=== PATIENT | male | born 1980 | race Caucasian/White ===

== ENCOUNTER 2017-03-22 14:30 | Emergency (ER) | payer BC ==
--- NOTE | 2017-03-22 14:34 | PDOC ---
Rapid Medical Evaluation Time Seen by Provider: 03/22/17 14:33 Medical Evaluation: Allergies Allergy/AdvReac Type Severity Reaction Status Date / Time No Known Allergies Allergy Verified 03/22/17 14:31 03/22/17 14:33 I have performed a brief in-person evaluation of this patient. The patient presents with a chief complaint of: rectal bleeding Pertinent physical exam findings: RECTAL: external hemorrhoid present I have ordered the following: n/a The patient will proceed to the ED for further evaluation. Discharge Disposition - Diagnosis Rectal bleeding - Referrals - Patient Instructions - Post Discharge Activity
[2017-03-22 14:38] VITALS: BMI 41.0
[2017-03-22 17:05] LABS: BASO # 0.1 # (0.1-1); BASO % 0.6 % (0-2.0); EOS # 0.1 # (0-4.5); EOS % 0.5 % (0-4.5); LYMPH # 1.9 (8-40); MCH 27.9 pg (25.7-33.7); MCHC 33.9 g/dl (32.0-35.9); MEAN CELL VOLUME 82.2 fl (80-96); MEAN PLT VOLUME 8.5 fl (7.5-11.1); MONO # 0.6 # (3.8-10.2); NEUT # 7.9 # (42.8-82.8); NEUT % 75.6 % (42.8-82.8); PLATELET COUNT 279 K/MM3 (134-434); RDW 13.7 % (11.9-15.9); WHITE BLOOD COUNT 10.5 K/mm3 (4.0-10.0)
--- NOTE | 2017-03-22 17:20 | PDOC ---
History of Present Illness - General Chief Complaint: Rectal Bleed Stated Complaint: RECTAL BLEED Time Seen by Provider: 03/22/17 14:33 - History of Present Illness Initial Comments: 03/22/17 17:20 Chief complaint: Rectal bleed History of present illness: 36 years old past medical history significant for gastric sleeve, depression, presents to the ED with 1 month history of small amount of bright red blood after firm bowel movements while wiping. Today patient expelled gas had a slightly larger amount of blood wiped for times slow blood on the toilet paper and came to the emergency department. The dizziness no lightheadedness no nausea no vomiting no diarrhea no abdominal pain. States he has a slight stomachache is drinking Gatorade states symptoms are improving. Past History - Past Medical History Allergies/Adverse Reactions: Allergies Allergy/AdvReac Type Severity Reaction Status Date / Time No Known Allergies Allergy Verified 03/22/17 14:31 Home Medications: Ambulatory Orders Azithromycin [Zithromax -] 250 mg PO UTDICT #6 tab 01/12/16 Guaifenesin AC [Robitussin AC] 10 ml PO TID #100 liquid MDD 40ml 01/12/16 Ibuprofen 800 mg PO TID #30 tablet 01/12/16 Anemia: No Asthma: No Cancer: No Cardiac Disorders: No CVA: No COPD: No CHF: No Dementia: No Diabetes: No GI Disorders: Yes (REFLUX) Disorders: No HTN: No Hypercholesterolemia: No Liver Disease: No Psychiatric Problems: Yes (ANXIETY.) Seizures: No Thyroid Disease: No - Surgical History Abdominal Surgery: Yes (OPEN APPENDECTOMY) Appendectomy: Yes (AT AGE 13) Cardiac Surgery: No Cholecystectomy: No Lung Surgery: No Neurologic Surgery: No Orthopedic Surgery: No - Immunization History Td Vaccination: Yes TDAP Vaccination: Yes Immunization Up to Date: Yes - Suicide/Smoking/Psychosocial Hx Smoking Status: No Smoking History: Never smoked Have you smoked in the past 12 months: No Number of Cigarettes Smoked Daily: 0 Information on smoking cessation initiated: No Hx Alcohol Use: No Drug/Substance Use Hx: No Substance Use Type: None Hx Substance Use Treatment: No Review of Systems - Review of Systems Comments:: 03/22/17 17:21 ROS: A complete review of 10 out of 10 review of systems is taken and is negative apart from what is previously mentioned below and in the HPI. *Physical Exam - Vital Signs Last Vital Signs Temp Pulse Resp BP Pulse Ox 97.9 F 79 16 150/100 100 03/22/17 14:32 03/22/17 14:32 03/22/17 14:32 03/22/17 14:32 03/22/17 14:32 - Physical Exam Comments: 03/22/17 17:24 Vitals: Triage Vital signs reviewed General Appearance: no acute distress, well nourished well developed, Head: Atraumatic, Neck: Supple;No Nucal rigidity Chest Wall: Nontender Cardiac: Regular rate and rhythym, no murmurs, no rubs, no gallops, Lungs: Clear to auscultation bilateral, good air movement bilaterally, Abdomen: Soft, non distended, normal bowel sounds, non tender to palpation Rectal: Brown stool mixed with streaks of red blood no obvious hemorrhoid identified Extremities: Full range of motion to all extremities, no cyanosis, clubbing, or edema Skin: Warm and dry, no rashes or lesions, no rash, no petechiae Neuro: AOX3; Cranial Nerves 2-12 grossly intact, Strength intact to all extremities, Sensation intact to all extremities,gait normal Psych: normal mood, normal affect ED Treatment Course - LABORATORY CBC & Chemistry Diagram: 03/22/17 16:57 03/22/17 16:57 - ADDITIONAL ORDERS Additional order review: 03/22/17 16:57 RBC 4.98 MCV 82.2 MCHC 33.9 RDW 13.7 MPV 8.5 Neutrophils % 75.6 D Lymphocytes % 18.0 D Monocytes % 5.3 Eosinophils % 0.5 Basophils % 0.6 Medical Decision Making - Medical Decision Making 03/22/17 17:27 Well appearing no apparent distress presents to the emergency department with 1 month history of intermittent bright red blood per rectum today had a larger amount. Hemodynamically stable H&H stable. Mild GI discomfort which has resolved with time here in the emergency department. Patient has a benign abdominal examination. Most likely diagnosis is either internal or external hemorrhoid. I provided the patient with gastroenterology follow-up and advised patient to call GI for follow-up in 2 days. He was instructed to return to the emergency department for any abdominal pain that is worsening any worsening blood per rectum any dizziness lightheadedness or for any concerns. He was instructed of the importance of close follow-up. Discussed with patient's primary care provider. He will see the patient on Saturday for follow-up. Findings, the need for follow-up and strict discharge instructions discussed with patient. 03/23/17 01:35 03/23/17 01:35 *DC/Admit/Observation/Transfer Diagnosis at time of Disposition: Rectal bleeding - Referrals Referrals: Moris Ledesma MD [Primary Care Provider] - Thong Nation MD [Staff Physician] - - Patient Instructions Printed Discharge Instructions: DI for Rectal Bleeding Additional Instructions: Tomorrow called office for appointment, will see her next Saturday. Follow-up with Dr. Nation gastroenterology next week. Take an [id number] stool softener such as Colace as directed on packaging. Return to the emergency department immediately for any worsening bleeding any abdominal pain lightheadedness dizziness or for any concerns. Also follow-up with your primary care provider next week as well. - Post Discharge Activity
[2017-03-22 17:49] LABS: ANION GAP 5 (8-16); CALCIUM 8.4 mg/dL (8.5-10.1); CO2 30 mmol/L (21-32); CREATININE 0.8 mg/dL (0.7-1.3); GLUCOSE,RANDOM 106 mg/dL (74-106)
[2017-03-22 18:10] VITALS: BP 142/86; PULSE 75; TEMP 98.1
== END 2017-03-22 18:00 | disposition home or self-care (01) ==
LOC: JER 14:30
DX: K62.5 Hemorrhage of anus and rectum (principal); F32.9 Major depressive disorder, single episode, unspecified; Z98.84 Bariatric surgery status
CPT/HCPCS: 36415; 80048; 85025; 99282-25

== ENCOUNTER 2017-12-12 13:31 | Emergency (ER) | payer SELFPAY ==
[2017-12-12 13:42] VITALS: BP 132/75; PULSE 83; TEMP 98.2; BMI 30.5
--- NOTE | 2017-12-12 14:18 | PDOC ---
History of Present Illness - General Chief Complaint: Injury Stated Complaint: RT ARM PAIN Time Seen by Provider: 12/12/17 13:56 History Source: Patient Exam Limitations: No Limitations - History of Present Illness Initial Comments: 12/12/17 14:13 37-year-old male presented to ED with complaints of pain to his right arm for the past 2 weeks. Patient states was carrying a 70 inch TV when it slipped walking down steps causing him to strain his right arm. Patient states discomfort continues from his mid bicep to his wrist. Patient states works for [employer] is frequently lifting items. Patient states pain worsened yesterday when he was carrying groceries for his . Patient denies melena range of motion, sensory changes, swelling, redness of the area Timing/Duration: intermittent, other Severity: mild, moderate Associated Symptoms: reports: denies symptoms Past History - Past Medical History Allergies/Adverse Reactions: Allergies Allergy/AdvReac Type Severity Reaction Status Date / Time No Known Allergies Allergy Verified 12/12/17 13:39 Home Medications: Ambulatory Orders NK [No Known Home Medication] 12/12/17 Anemia: No Asthma: No Cancer: No Cardiac Disorders: No CVA: No COPD: No CHF: No Dementia: No Diabetes: No GI Disorders: Yes (REFLUX) Disorders: No HTN: No Hypercholesterolemia: No Liver Disease: No Psychiatric Problems: Yes (ANXIETY.) Seizures: No Thyroid Disease: No Other medical history: sleep apnea - Surgical History Abdominal Surgery: Yes (OPEN APPENDECTOMY) Appendectomy: Yes (AT AGE 13) Cardiac Surgery: No Cholecystectomy: No Lung Surgery: No Neurologic Surgery: No Orthopedic Surgery: No - Immunization History Td Vaccination: Yes TDAP Vaccination: Yes Immunization Up to Date: Yes - Suicide/Smoking/Psychosocial Hx Smoking Status: No Smoking History: Never smoked Have you smoked in the past 12 months: No Number of Cigarettes Smoked Daily: 0 Hx Alcohol Use: No Drug/Substance Use Hx: No Substance Use Type: None Hx Substance Use Treatment: No Patient Lives Alone: No Lives with/in: spouse/SO Review of Systems - Review of Systems Able to Perform ROS?: No Constitutional: No: Symptoms Reported Respiratory: No: Symptoms reported Cardiac (ROS): No: Symptoms Reported Musculoskeletal: Yes: Muscle Pain. No: Joint Pain, Muscle Weakness Integumentary: No: Symptoms Reported Neurological: No: Symptoms reported, Numbness, Tingling, Weakness *Physical Exam - Vital Signs Last Vital Signs Temp Pulse Resp BP Pulse Ox 98.2 F 83 18 132/75 98 12/12/17 13:39 12/12/17 13:39 12/12/17 13:39 12/12/17 13:39 12/12/17 13:39 - Physical Exam General Appearance: Yes: Nourished, Appropriately Dressed. No: Apparent Distress Neck: positive: Supple. negative: Decreased range of motion Musculoskeletal: negative: Vertebral Tenderness Extremity: positive: Normal Capillary Refill, Normal Inspection, Normal Range of Motion, Tender (rt brachioradialis ) Integumentary: positive: Normal Color, Warm, Moist Neurologic: positive: Motor Strength 5/5 (5+ rt hand grasp but with noted discomfort) Medical Decision Making - Medical Decision Making 12/12/17 14:16 Patient with right forearm pain for the past 2 weeks worsened with movement. Patient works with [employer] frequently lifting items. Patient states is able to work is given a sling which are promote healing and provide patient reminder that he needs to rest area. *DC/Admit/Observation/Transfer Diagnosis at time of Disposition: Muscle strain of forearm - Discharge Dispostion Disposition: HOME Condition at time of disposition: Good - Referrals - Patient Instructions Printed Discharge Instructions: DI for Forearm Muscle Strain Additional Instructions: Please use sling during the day and remove at night. Take Advil 600 mg every 8 hours. If symptoms continue greater than 2 weeks please consider 5 with your doctor to have an MRI performed - Post Discharge Activity
== END 2017-12-12 14:32 | disposition home or self-care (01) ==
LOC: JERFT 13:31
DX: S56.811A Strain of other muscles, fascia and tendons at forearm level, right arm, initial encounter (principal); X50.0XXA Overexertion from strenuous movement or load, initial encounter; Y93.89 Activity, other specified; Y92.89 Other specified places as the place of occurrence of the external cause; Y99.8 Other external cause status
CPT/HCPCS: 99281-25

== ENCOUNTER 2017-12-17 23:56 | Emergency (ER) | payer SELFPAY ==
[2017-12-18 00:44] VITALS: BMI 41.1
--- NOTE | 2017-12-18 01:22 | PDOC ---
History of Present Illness <Albert Ruby - Last Filed: 12/18/17 06:14> - General History Source: Patient Exam Limitations: No Limitations - History of Present Illness Initial Comments: 12/18/17 03:56 Patient is a 37-year-old male with no past medical history, who presents to the emergency department today for gross hematuria. Patient states symptoms started this morning. He states that over the day the amount of blood in his urine progressively got worse. He also admits to pain with urination and a burning sensation. Patient is monogamous with 1 partner. He also admits to lower abdominal pain. Denies fevers, chills, nausea, vomiting, diarrhea, constipation , testicular pain, weakness. <Jazmin Babcock - Last Filed: 12/18/17 07:11> - General Chief Complaint: Hematuria Stated Complaint: BLOOD IN Urinary Time Seen by Provider: 12/18/17 00:57 Past History <Albert Ruby - Last Filed: 12/18/17 06:14> - Travel Traveled outside of the country in the last 30 days: No Close contact w/someone who was outside of country & ill: No - Past Medical History Anemia: No Asthma: No Cancer: No Cardiac Disorders: No CVA: No COPD: No CHF: No Dementia: No Diabetes: No GI Disorders: Yes (REFLUX) Disorders: No HTN: No Hypercholesterolemia: No Liver Disease: No Psychiatric Problems: Yes (ANXIETY.) Seizures: No Thyroid Disease: No - Surgical History Abdominal Surgery: Yes (OPEN APPENDECTOMY) Appendectomy: Yes (AT AGE 13) Cardiac Surgery: No Cholecystectomy: No Lung Surgery: No Neurologic Surgery: No Orthopedic Surgery: No - Immunization History Td Vaccination: Yes TDAP Vaccination: Yes Immunization Up to Date: Yes - Suicide/Smoking/Psychosocial Hx Smoking Status: No Smoking History: Never smoked Have you smoked in the past 12 months: No Number of Cigarettes Smoked Daily: 0 Information on smoking cessation initiated: No Hx Alcohol Use: No Drug/Substance Use Hx: No Substance Use Type: None Hx Substance Use Treatment: No <Jazmin Babcock - Last Filed: 12/18/17 07:11> - Past Medical History Allergies/Adverse Reactions: Allergies Allergy/AdvReac Type Severity Reaction Status Date / Time No Known Allergies Allergy Verified 12/12/17 13:39 Home Medications: Ambulatory Orders Phenazopyridine HCl [Pyridium -] 100 mg PO TID #21 tablet 12/18/17 Review of Systems - Review of Systems Able to Perform ROS?: Yes Comments:: 12/18/17 01:21 CONSTITUTIONAL: Absent: fever, chills, diaphoresis, generalized weakness, malaise, loss of appetite HEENT: Absent: rhinorrhea, nasal congestion, throat pain, throat swelling, difficulty swallowing, mouth swelling, ear pain, eye pain, visual Changes CARDIOVASCULAR: Absent: chest pain, loss of consciousness, palpitations, irregular heart rate, peripheral edema RESPIRATORY: Absent: cough, shortness of breath, dyspnea with exertion, orthopnea, wheezing, stridor, hemoptysis GASTROINTESTINAL: Absent: abdominal pain, abdominal distension, nausea, vomiting, diarrhea, constipation, melena, hematochezia GENITOURINARY: Present: hematuria, dysuria Absent: frequency, urgency, hesitancy, flank pain, genital pain MUSCULOSKELETAL: Absent: myalgia, arthralgia, joint swelling SKIN: Absent: rash, itching, pallor HEMATOLOGIC/IMMUNOLOGIC: Absent: easy bleeding, easy bruising, lymphadenopathy, frequent infections ENDOCRINE: Absent: unexplained weight gain, unexplained weight loss, heat intolerance, cold intolerance NEUROLOGIC: Absent: headache, focal weakness or paresthesias, dizziness, unsteady gait, seizure, mental status changes, bladder or bowel incontinence Is the patient limited Uzbek proficient: No <Jazmin Babcock - Last Filed: 12/18/17 07:11> *Physical Exam - Vital Signs Last Vital Signs Temp Pulse Resp BP Pulse Ox 98.6 F 82 20 138/88 98 12/17/17 23:58 12/17/17 23:58 12/17/17 23:58 12/17/17 23:58 12/17/17 23:58 <Albert Ruby - Last Filed: 12/18/17 06:14> - Vital Signs Last Vital Signs Temp Pulse Resp BP Pulse Ox 98.6 F 82 20 138/88 98 12/17/17 23:58 12/17/17 23:58 12/17/17 23:58 12/17/17 23:58 12/17/17 23:58 - Physical Exam Comments: 12/18/17 01:22 GENERAL: Well developed, well nourished. Awake and alert. No acute distress. HEENT: Normocephalic, atraumatic. PERRLA, EOMI. No conjunctival pallor. Sclera are non- icteric. Moist mucous membranes. Oropharynx is clear. NECK: Supple. Full ROM. No JVD. Carotid pulses 2+ and symmetric, without bruits. No thyromegaly. No lymphadenopathy. CARDIOVASCULAR: Regular rate and rhythm. No murmurs, rubs, or gallops. Distal pulses are 2+ and symmetric. PULMONARY: No evidence of respiratory distress. Lungs clear to auscultation bilaterally. No wheezing, rales or rhonchi. ABDOMINAL: TTP of the suprapubic region. Soft. Non-distended. No rebound or guarding. No organomegaly. Normoactive bowel sounds. : No lesions or ulcers noted to the external genitalia. On retraction of foreskin , gross hematuria noted. Testicles are descended b/l and freely mobile without pain. MUSCULOSKELETAL Normal range of motion at all joints. No bony deformities or tenderness. No CVA tenderness. EXTREMITIES: No cyanosis. No clubbing. No edema. No calf tenderness. SKIN: Warm and dry. Normal capillary refill. No rashes. No jaundice. NEUROLOGICAL: Alert, awake, appropriate. Cranial nerves 2-12 intact. No deficits to light touch and temperature in face, upper extremities and lower extremities. No motor deficits in the in face, upper extremities and lower extremities. Normoreflexic in the upper and lower extremities. Normal speech. Toes are down- going bilaterally. Gait is normal without ataxia. PSYCHIATRIC: Cooperative. Good eye contact. Appropriate mood and affect. 12/18/17 06:57 <Jazmin Babcock - Last Filed: 12/18/17 07:11> ED Treatment Course - LABORATORY CBC & Chemistry Diagram: 12/18/17 02:22 12/18/17 02:22 - ADDITIONAL ORDERS Additional order review: Laboratory Results 12/18/17 12/18/17 03:50 02:22 Sodium 140 Potassium 4.2 Chloride 103 Carbon Dioxide 32 Anion Gap 5 L BUN 16 Creatinine 0.9 Creat Clearance w eGFR > 60 Random Glucose 95 Calcium 8.7 Total Bilirubin 0.5 AST 19 ALT 29 Alkaline Phosphatase 106 Total Protein 7.4 Albumin 3.9 Urine Color Ltyellow Urine Appearance Clear Urine pH 6.0 Ur Specific [employer] 1.018 Urine Protein Negative Urine Glucose (UA) Negative Urine Ketones Negative Urine Blood 3+ H Urine Nitrite Negative Urine Bilirubin Negative Urine Urobilinogen Negative Ur Leukocyte Esterase Negative Urine WBC (Auto) 4 Urine RBC (Auto) 219 Ur Epithelial Cells Rare Urine Bacteria Few Hyaline Casts 3 Urine Mucus Rare 12/18/17 02:22 RBC 4.93 MCV 80.9 MCHC 33.7 RDW 13.4 MPV 8.3 Neutrophils % 72.8 Lymphocytes % 20.6 Monocytes % 4.8 Eosinophils % 1.1 D Basophils % 0.7 <Albert Ruby - Last Filed: 12/18/17 06:14> - LABORATORY CBC & Chemistry Diagram: 12/18/17 02:22 12/18/17 02:22 <Jazmin Babcock - Last Filed: 12/18/17 07:11> Medical Decision Making - Medical Decision Making 12/18/17 06:[address] Tobar, urologist precision farming coordinator's answering service, awaiting call back from Dr. English precision farming coordinator for Dr. Tobar. <Albert Ruby - Last Filed: 12/18/17 06:14> - Medical Decision Making 12/18/17 06:49 Patient is a 37-year-old male with no past medical history, who presents to the emergency department today for gross hematuria. -Pt with one day of gross hematuria and dysuria -PE notable for bloody discharge at the head of the penis -No GC/Chlamidia amplifications left in the lab -Lab work notable for gross hematuria on UA. Over 300+ RBC's. No WBCS/LE and nitrite (-) -H&H stable, BUN/Cr WNL -DDX includes: cystitis, UTI, STD, polyps, Ca -Spoke with Dr. Pitts, recommends CT scan at this time. If negative can dc home with Urology follow up to see him in the office for cystoscopy. -Will have pt hold ibuprofen use -Sign out to day shift. Pending CT <Jazmin Babcock - Last Filed: 12/18/17 07:11> *DC/Admit/Observation/Transfer - Attestations Scribe Attestion: 12/18/17 06:15 Documentation prepared by Albert Ruby, acting as medical record administrator for Michael Bender MD. <Albert Ruby - Last Filed: 12/18/17 06:14> - Discharge Dispostion Decision to Admit order: No <Jazmin Babcock - Last Filed: 12/18/17 07:11> Diagnosis at time of Disposition: Hematuria Qualifiers: Hematuria type: gross Qualified Code(s): R31.0 - Gross hematuria - Discharge Dispostion Condition at time of disposition: Stable - Referrals Referrals: Moris Ledesma MD [Primary Care Provider] - Gentry English MD., MD [Staff Physician] - - Patient Instructions Printed Discharge Instructions: DI for Hematuria Additional Instructions: You have hematuria or blood in the urine Please follow up with Dr. English, urology for further work up Do not take the ibuprofen until your bleeding has stopped Please follow [facility] with [facility] for [facility]D testing Drink plenty of fluids You may take pyridium 3 times a day with food to help with your symptoms Return to the ED for any new or worsening symptoms - Post Discharge Activity
[2017-12-18 02:30] LABS: BASO % 0.7 % (0-2.0); EOS % 1.1 % (0-4.5); HEMATOCRIT 39.8 % (35.4-49); HEMOGLOBIN 13.4 GM/dL (11.7-16.9); LYMPH % 20.6 % (8-40); MCH 27.3 pg (25.7-33.7); MCHC 33.7 g/dl (32.0-35.9); MEAN CELL VOLUME 80.9 fl (80-96); MEAN PLT VOLUME 8.3 fl (7.5-11.1); MONO % 4.8 % (3.8-10.2); NEUT % 72.8 % (42.8-82.8); PLATELET COUNT 265 K/MM3 (134-434); RBC 4.93 M/mm3 (4.00-5.60); RDW 13.4 % (11.9-15.9); WHITE BLOOD COUNT 8.9 K/mm3 (4.0-10.0)
[2017-12-18 02:54] LABS: ALBUMIN 3.9 g/dl (3.4-5.0); ANION GAP 5 MMOL/L (8-16); BILIRUBIN,TOTAL 0.5 mg/dL (0.2-1); BLOOD UREA NITROGEN 16 mg/dL (7-18); CALCIUM 8.7 mg/dL (8.5-10.1); CHLORIDE 103 mmol/L (98-107); CO2 32 mmol/L (21-32); CREATININE 0.9 mg/dL (0.55-1.3); GLUCOSE,RANDOM 95 mg/dL (74-106); POTASSIUM 4.2 mmol/L (3.5-5.1); SGOT/AST 19 U/L (15-37); SGPT/ALT 29 U/L (13-61); SODIUM 140 mmol/L (136-145); TOT PROT 7.4 g/dl (6.4-8.2)
[2017-12-18 02:55] LABS: ALK PHOS 106 U/L (45-117)
[2017-12-18 04:18] LABS: URINE APPEARANCE CLEAR; URINE BILIRUBIN NEGATIVE (<2.0 mg/dL); URINE COLOR LTYELLOW; URINE GLUCOSE (UA) NEGATIVE (NEGATIVE); URINE KETONE NEGATIVE (NEGATIVE); URINE LEUK ESTERASE NEGATIVE (NEGATIVE); URINE NITRITE NEGATIVE (NEGATIVE); URINE PROTEIN NEGATIVE (NEGATIVE); URINE UROBILINOGEN NEGATIVE mg/dL (0.2-1.0)
[2017-12-18 05:30] LABS: EPI CELLS RARE /HPF (FEW); URINE BACTERIA FEW /hpf (NONE SEEN); URINE HYALINE CAST 3 /lpf; URINE MUCUS RARE
[2017-12-18] MEDS ORDERED: PHENAZOPYRIDINE HCL 100 MG TABLET (FP) PO ONE (07:11)
--- NOTE | 2017-12-18 08:01 | PDOC ---
*Physical Exam - Vital Signs Last Vital Signs Temp Pulse Resp BP Pulse Ox 98.5 F 88 18 136/78 99 12/18/17 06:39 12/18/17 06:39 12/18/17 06:39 12/18/17 06:39 12/18/17 06:39 - Physical Exam Comments: 12/18/17 07:59 Eyes in the care of this 37-year-old male with no sig Past medical history presented with gross hematuria. Urinalysis and all labs done with no significant findings except gross hematuria. abdominal pelvis CT ordered to rule out any mass. Urology aware of the patient and will do so for urology follow-up based on CT results General Appearance: Yes: Nourished, Appropriately Dressed. No: Apparent Distress HEENT: positive: Normal ENT Inspection Neck: positive: Supple Respiratory/Chest: positive: Lungs Clear, Normal Breath Sounds. negative: Chest Tender, Respiratory Distress, Accessory Muscle Use Cardiovascular: positive: Regular Rhythm, Regular Rate Gastrointestinal/Abdominal: positive: Normal Bowel Sounds, Flat, Soft. negative : Tender Musculoskeletal: positive: Normal Inspection. negative: CVA Tenderness ED Treatment Course - LABORATORY CBC & Chemistry Diagram: 12/18/17 02:22 12/18/17 02:22 - ADDITIONAL ORDERS Additional order review: Laboratory Results 12/18/17 12/18/17 03:50 02:22 Sodium 140 Potassium 4.2 Chloride 103 Carbon Dioxide 32 Anion Gap 5 L BUN 16 Creatinine 0.9 Creat Clearance w eGFR > 60 Random Glucose 95 Calcium 8.7 Total Bilirubin 0.5 AST 19 ALT 29 Alkaline Phosphatase 106 Total Protein 7.4 Albumin 3.9 Urine Color Ltyellow Urine Appearance Clear Urine pH 6.0 Ur Specific [employer] 1.018 Urine Protein Negative Urine Glucose (UA) Negative Urine Ketones Negative Urine Blood 3+ H Urine Nitrite Negative Urine Bilirubin Negative Urine Urobilinogen Negative Ur Leukocyte Esterase Negative Urine WBC (Auto) 4 Urine RBC (Auto) 219 Ur Epithelial Cells Rare Urine Bacteria Few Hyaline Casts 3 Urine Mucus Rare 12/18/17 02:22 RBC 4.93 MCV 80.9 MCHC 33.7 RDW 13.4 MPV 8.3 Neutrophils % 72.8 Lymphocytes % 20.6 Monocytes % 4.8 Eosinophils % 1.1 D Basophils % 0.7 Medical Decision Making - Medical Decision Making 12/18/17 09:07 Patient with no sig Past medical history presenting with complain of gross hematuria since overnight with urinary frequency and dysuria. Labs done unremarkable except gross hematuria. Patient give another urine sample which has been clearing up from hematuria from previous sample. Patient reported no pain now. Abdomen/pelvis CT done and discharged being on CT results which urology follow-up 12/18/17 09:37 CAT scan of abdomen or pelvis with no acute findings. Patient stable for home discharge on Cipro antibiotics and Pyridium with urology follow-up. *DC/Admit/Observation/Transfer Diagnosis at time of Disposition: Hematuria Qualifiers: Hematuria type: gross Qualified Code(s): R31.0 - Gross hematuria - Discharge Dispostion Disposition: HOME Condition at time of disposition: Stable - Prescriptions Prescriptions: Ciprofloxacin HCl [Cipro] 500 mg PO BID 5 Days #10 tablet Phenazopyridine HCl [Pyridium -] 100 mg PO TID #21 tablet - Referrals Referrals: Gentry English MD., MD [Staff Physician] - Moris Ledesma MD [Primary Care Provider] - - Patient Instructions Printed Discharge Instructions: DI for Hematuria Additional Instructions: You have hematuria or blood in the urine Please follow up with Dr. English, urology for further work up Do not take the ibuprofen until your bleeding has stopped Please follow [facility] with [facility] for [facility]D testing Drink plenty of fluids You may take pyridium 3 times a day with food to help with your symptoms Return to the ED for any new or worsening symptoms - Post Discharge Activity
[2017-12-18] MEDS ORDERED: PHENAZOPYRIDINE HCL 100 MG TABLET (FP) ONE (08:40)
[2017-12-18 09:52] VITALS: BP 124/88; PULSE 63; TEMP 98.6
== END 2017-12-18 09:51 | disposition home or self-care (01) ==
LOC: JER 23:56
DX: R31.0 Gross hematuria (principal)
CPT/HCPCS: 36415; 74178-TC; 80053; 81003; 81015; 85025; 87070; 87086; 87186; 87205; 99282-25

== ENCOUNTER 2018-03-11 22:57 | Emergency (ER) | payer SELFPAY ==
[2018-03-11 23:08] VITALS: BP 141/77; PULSE 74; TEMP 98.9; BMI 41.5
--- NOTE | 2018-03-12 00:05 | PDOC ---
History of Present Illness - General Chief Complaint: Shortness of Breath Stated Complaint: DIFFICULTY BREATHING,COLD SYMPTOMS Time Seen by Provider: 03/11/18 23:41 History Source: Patient Exam Limitations: No Limitations - History of Present Illness Initial Comments: 03/12/18 01:22 Patient is a 37 year old male with no significant past medical history who presents to the ED with complaints of persistent cough that began x1 month ago. Patient reports initially experiencing cough with associated fever and chills. He reports over time his symptoms have subsided aside from his cough which has remained constant since the beginning in January 2018. Patient reports experiencing nausea, post tussive emesis, headache, dizziness, chest pain secondary to chronic coughing. He reports being unable to speak due to cough stating, any talking starts a coughing fit. As per patient's , patient has tried OTC cough drops, nyquil and home remedies for cough with no relief, prompting him to come into the ED for further evaluation. Denies nausea. Denies fevers, chills. Denies contact with sick individuals, out of state travelling. Denies dysuria, hematuria. Denies diarrhea, constipation. Denies any other symptoms Allergies: None Social history: Lives with . No smoking, No alcohol. No illicit drugs . Surgical history: Appendectomy PMD: None Past History - Past Medical History Allergies/Adverse Reactions: Allergies Allergy/AdvReac Type Severity Reaction Status Date / Time No Known Allergies Allergy Verified 03/11/18 23:07 Home Medications: Ambulatory Orders Phenazopyridine HCl [Pyridium] 100 mg PO TID 2 Days #6 tablet 12/18/17 Levofloxacin [Levaquin] 500 mg PO DAILY #7 tablet 12/21/17 Albuterol Sulfate Inhaler - [Ventolin HFA Inhaler -] 1 - 2 inh PO QID PRN #1 inhaler 03/12/18 Albuterol Sulfate Inhaler - [Ventolin HFA Inhaler -] 1 - 2 inh PO QID PRN #1 inhaler 03/12/18 Benzonatate [Tessalon Pearls -] 100 mg PO TID PRN #21 capsule 03/12/18 Benzonatate [Tessalon Pearls -] 100 mg PO TID PRN #21 capsule 03/12/18 Anemia: No Asthma: No Cancer: No Cardiac Disorders: No CVA: No COPD: No CHF: No Dementia: No Diabetes: No GI Disorders: Yes (REFLUX) Disorders: No HTN: No Hypercholesterolemia: No Liver Disease: No Psychiatric Problems: Yes (ANXIETY.) Seizures: No Thyroid Disease: No - Surgical History Abdominal Surgery: Yes (OPEN APPENDECTOMY) Appendectomy: Yes (AT AGE 13) Cardiac Surgery: No Cholecystectomy: No Lung Surgery: No Neurologic Surgery: No Orthopedic Surgery: No - Immunization History Td Vaccination: Yes TDAP Vaccination: Yes Immunization Up to Date: Yes - Suicide/Smoking/Psychosocial Hx Smoking Status: No Smoking History: Never smoked Have you smoked in the past 12 months: No Number of Cigarettes Smoked Daily: 0 Information on smoking cessation initiated: No Hx Alcohol Use: No Drug/Substance Use Hx: No Substance Use Type: None Hx Substance Use Treatment: No Review of Systems - Review of Systems Able to Perform ROS?: Yes Comments:: 03/12/18 01:23 Constitutional: no fevers or chills. HEENT: +headache, dizziness, congestion. CVS: +chest pain from cough Resp: no sob. +cough Abdomen: no abdominal pain, nausea. +postussive emesis Genitourinary: no urinary sx, hematuria. MUSCULOSKELETAL: No joint pain and swelling. No neck or back pain. SKIN: no redness or skin changes, no discharge, no rash. No wounds. Hematologic: no easy bruising/bleeding. NEUROLOGIC: +headache. No LOC or altered mental status. No weakness, numbness or tingling. All other systems reviewed and negative, or as documented in HPI. *Physical Exam - Vital Signs Last Vital Signs Temp Pulse Resp BP Pulse Ox 98.9 F 74 18 141/77 98 03/11/18 23:02 03/11/18 23:02 03/11/18 23:02 03/11/18 23:02 03/11/18 23:02 - Physical Exam Comments: 03/12/18 01:24 General: +Actively coughing, Well appearing, awake and alert, NAD. HEENT: NCAT, PERRL, EOMI, clear conjunctiva, anicteric, moist mucus membranes, clear oropharynx, no oral lesions.. hoarse voice. Neck: neck supple, FROM Resp: CTAB, normal and even respirations, no respiratory distress CVS: RRR, no murmurs, 2+ peripheral pulses throughout, no peripheral edema Abdomen: +RLQ Appendectomy scar; soft, NTND, no peritoneal signs. Back: nontender, normal inspection and ROM MSK: no edema, FREGOSO x4, ROM intact. No clubbing or cyanosis. normal bulk and tone. Extremities: no calf tenderness Neuro: alert, oriented appropriately Skin: warm and well perfused, cap refill <2 sec, normal color Moderate Sedation - Procedure Monitoring Vital Signs: Procedure Monitoring Vital Signs Temperature 98.9 F 03/11/18 23:02 Pulse Rate 74 03/11/18 23:02 Respiratory Rate 18 03/11/18 23:02 Blood Pressure 141/77 03/11/18 23:02 O2 Sat by Pulse Oximetry (%) 98 03/11/18 23:02 ED Treatment Course - RADIOLOGY Radiology Studies Ordered: Category Date Time Status CHEST PA & LAT [RAD] Stat Radiology 03/11/18 23:47 Ordered Medical Decision Making - Medical Decision Making 03/12/18 00:03 I, Thea Stafford MD, attest that this document has been prepared under my direction and personally reviewed by me in its entirety. I further attest, that it accurately reflects all work, treatment, procedures and medical decision -making performed by me. See HPI for details Vital signs reviewed, wnl. no hypoxia. +actively coughing. hoarse voice. CXR_clear, no acute pathology, no infiltrate or edema ED course: duonebs x3 for brochospastic cough. now more able to speak, no respiratory distress. on reassessment, feels better. likely viral bronchitis and chronic cough secondary to inflammation/viral etiology. no fever/systemic sx. rx tessalon perles TID PRN cough. albuterol inhaler Q4-6 hr for cough/sob. stay hydrated warm water and salt gargles, warm tea and lemon. verbalized no indication for abx, as no f/c, to suggest bacterial or atypical infection Dispo: Pt to be discharged in stable condition. Patient and family made aware of impression and plan, return precautions discussed (including but not limited to worsening pain or symptoms), fevers, or signs of infection, chest pain, respiratory distress, inability to tolerate oral intake, dehydration, syncope, or neurologic changes). Follow up with PMD as recommended, follow up information provided, take medications as instructed for duration of time. continue with supportive care, avoid triggers and precipitants. All questions answered to patient's satisfaction and expressed understanding and comfort with this. 03/12/18 01:33 03/12/18 01:35 *DC/Admit/Observation/Transfer Diagnosis at time of Disposition: Bronchitis, Cough - Discharge Dispostion Disposition: HOME Condition at time of disposition: Improved Decision to Admit order: No - Prescriptions Prescriptions: Albuterol Sulfate Inhaler - [Ventolin HFA Inhaler -] 1 - 2 inh PO QID PRN #1 inhaler PRN Reason: Shortness Of Breath Albuterol Sulfate Inhaler - [Ventolin HFA Inhaler -] 1 - 2 inh PO QID PRN #1 inhaler PRN Reason: Shortness Of Breath Benzonatate [Tessalon Pearls -] 100 mg PO TID PRN #21 capsule PRN Reason: Cough Benzonatate [Tessalon Pearls -] 100 mg PO TID PRN #21 capsule PRN Reason: Cough - Referrals Referrals: [facility] [place] [facility] [Provider Group] [facility] [Provider Group] - Patient Instructions Printed Discharge Instructions: DI for Cough -- Adult, DI for Acute Bronchitis , DI for Viral Upper Respiratory Infection -- Adult Additional Instructions: your chest x ray appears clear, no signs of infection or pneumonia. so most likely this is a bronchitis related chronic cough and can linger with viral illnesses for at least 3 weeks. salt water gargles and warm lemon tea is appropriate as well. minimize spread of infection given contagious nature, and cover your mouth and wash your hands adequately with soap and water. stay well hydrated take tessalon perles three times a day as needed for cough. do not take other agents over the counter for cough when taking this one that is prescribed. can also use albuterol inhaler every 4-6 hours as needed for cough/shortness of breath. follow up with primary doctor, referrals given. - Post Discharge Activity Forms/Work/School Notes: Back to Work
[2018-03-12] MEDS ORDERED: ALBUTEROL SO4 2.5/IPRATROPIUM 0.5 INH SOL 3 ML VIAL.NEB. NEB ONE ×2 (00:30→00:39)
[2018-03-12] MEDS: ALBUTEROL SO4 2.5/IPRATROPIUM 0.5 INH SOL 3 ML VIAL.NEB. NEB SCH ×3 (00:35→01:04)
== END 2018-03-12 01:45 | disposition home or self-care (01) ==
LOC: JER 22:57
PROC: 3E0F7GC Introduction of Other Therapeutic Substance into Respiratory Tract, Via Natural or Artificial Opening (ICD-10-PCS; principal; 2018-03-11)
DX: J40 Bronchitis, not specified as acute or chronic (principal); R05 Cough; F41.9 Anxiety disorder, unspecified; K21.9 Gastro-esophageal reflux disease without esophagitis
CPT/HCPCS: 71046-TC-FY; 99282-25

== ENCOUNTER 2018-12-30 01:46 | Emergency (ER) | payer SELFPAY ==
[2018-12-30 02:07] VITALS: BP 129/77; PULSE 76; TEMP 98.3; BMI 39.9
--- NOTE | 2018-12-30 04:13 | PDOC ---
*Physical Exam - Vital Signs Last Vital Signs Temp Pulse Resp BP Pulse Ox 98.3 F 76 18 129/77 98 12/30/18 02:04 12/30/18 02:04 12/30/18 02:04 12/30/18 02:04 12/30/18 02:04 Medical Decision Making - Medical Decision Making 12/30/18 04:13 Patient seen by the advanced practice provider under my direct supervision. Ancillary testing reviewed as necessary. I agree with plan as outlined by the advanced practice provider. Discharge - Discharge Information Problems reviewed: Yes Clinical Impression/Diagnosis: Hemorrhoids Qualifiers: Hemorrhoid type: other Qualified Code(s): K64.8 - Other hemorrhoids Disposition: HOME - Additional Discharge Information Prescriptions: Docusate Sodium [Colace] 100 mg PO BID #30 capsule Hydrocortisone Acetate [Anusol Hc Suppository -] 25 mg RC BID #14 supp.rect Polyethylene Glycol 3350 [Miralax (For Daily Use) -] 17 gm PO DAILY #1 bottle - Follow up/Referral Referrals: Fátima Shelton MD [Staff Physician] - Call tomorrow Saurabh Ledesma MD [Primary Care Provider] - - Patient Discharge Instructions Patient Printed Discharge Instructions: Hemorrhoids (Alternative Therapy) Additional Instructions: take miralax as prescribed. take colace as prescribed use anusol as prescribed, follow up with a rectal/ Gi doctor as soon as possible. return to the ER for any worsening symptoms - Post Discharge Activity Work/Back to School Note: Back to Work
--- NOTE | 2018-12-30 04:15 | PDOC ---
History of Present Illness - General Chief Complaint: Bleeding from Anus Stated Complaint: PAIN,RECTAL BLEEDING Time Seen by Provider: 12/30/18 04:07 History Source: Patient - History of Present Illness Initial Comments: 12/30/18 05:32 38 year old male c/o rectal bleeding x 2 weeks reports bleeding noted with straining. denies constipation, nausea, vomiting abdominal pain PMHX: none Past History - Past Medical History Allergies/Adverse Reactions: Allergies Allergy/AdvReac Type Severity Reaction Status Date / Time No Known Allergies Allergy Verified 12/30/18 02:07 Home Medications: Ambulatory Orders Phenazopyridine HCl [Pyridium] 100 mg PO TID 2 Days #6 tablet 12/18/17 Levofloxacin [Levaquin] 500 mg PO DAILY #7 tablet 12/21/17 Albuterol Sulfate Inhaler - [Ventolin HFA Inhaler -] 1 - 2 inh PO QID PRN #1 inhaler 03/12/18 Albuterol Sulfate Inhaler - [Ventolin HFA Inhaler -] 1 - 2 inh PO QID PRN #1 inhaler 03/12/18 Benzonatate [Tessalon Pearls -] 100 mg PO TID PRN #21 capsule 03/12/18 Benzonatate [Tessalon Pearls -] 100 mg PO TID PRN #21 capsule 03/12/18 Docusate Sodium [Colace] 100 mg PO BID #30 capsule 12/30/18 Hydrocortisone Acetate [Anusol Hc Suppository -] 25 mg RC BID #14 supp.rect 04/19 Polyethylene Glycol 3350 [Miralax (For Daily Use) -] 17 gm PO DAILY #1 bottle Anemia: No Asthma: No Cancer: No Cardiac Disorders: No CVA: No COPD: No CHF: No Dementia: No Diabetes: No GI Disorders: Yes (REFLUX) Disorders: No HTN: No Hypercholesterolemia: No Liver Disease: No Psychiatric Problems: Yes (ANXIETY.) Seizures: No Thyroid Disease: No - Surgical History Abdominal Surgery: Yes (OPEN APPENDECTOMY) Appendectomy: Yes (AT AGE 13) Cardiac Surgery: No Cholecystectomy: No GI Surgery: Yes Lung Surgery: No Neurologic Surgery: No Orthopedic Surgery: No - Immunization History Td Vaccination: Yes TDAP Vaccination: Yes Immunization Up to Date: Yes - Psycho Social/Smoking Cessation Hx Smoking Status: No Smoking History: Never smoked Have you smoked in the past 12 months: No Number of Cigarettes Smoked Daily: 0 Hx Alcohol Use: No Drug/Substance Use Hx: No Substance Use Type: None Hx Substance Use Treatment: No Review of Systems - Review of Systems Able to Perform ROS?: Yes Is the patient limited Serbian proficient: No ABD/GI: Yes: Rectal Bleeding. No: Symptoms Reported, See HPI, Abdominal Distended, Abd. Pain w/ defecation, Blood Streaked Bowels, Constipated, Diarrhea , Difficulty Swallowing, Nausea, Poor Appetite, Poor Fluid Intake, Vomiting, Indigestion, Abdominal cramping, Tarry Stools, Other : No: Symptoms Reported, See HPI, Burning, Dysuria, Discharge, Frequency, Flank Pain, Hematuria, Incontinence, Pain, Urgency, Testicular Mass, Testicular Swelling, Lesions, Testicular Pain, Other *Physical Exam - Vital Signs Last Vital Signs Temp Pulse Resp BP Pulse Ox 98.3 F 76 18 129/77 98 12/30/18 02:04 12/30/18 02:04 12/30/18 02:04 12/30/18 02:04 12/30/18 02:04 - Physical Exam General Appearance: Yes: Appropriately Dressed Gastrointestinal/Abdominal: positive: Normal Bowel Sounds, Soft. negative: Tender Rectal Exam: positive: normal rectal tone, hemorrhoids (+ small external hemorrhoids) Extremity: positive: Normal Capillary Refill Integumentary: positive: Normal Color, Dry, Warm Neurologic: positive: Fully Oriented, Alert ED Progress Note - Progress Note Progress Note: 12/30/18 05:34 A: hemorrhoids P: anusol Miralax Gi follow up Discharge - Discharge Information Problems reviewed: Yes Clinical Impression/Diagnosis: Hemorrhoids Qualifiers: Hemorrhoid type: other Qualified Code(s): K64.8 - Other hemorrhoids Disposition: HOME - Additional Discharge Information Prescriptions: Docusate Sodium [Colace] 100 mg PO BID #30 capsule Hydrocortisone Acetate [Anusol Hc Suppository -] 25 mg RC BID #14 supp.rect Polyethylene Glycol 3350 [Miralax (For Daily Use) -] 17 gm PO DAILY #1 bottle - Follow up/Referral Referrals: Saurabh Ledesma MD [Primary Care Provider] - Fátima Shelton MD [Staff Physician] - Call tomorrow - Patient Discharge Instructions Patient Printed Discharge Instructions: Hemorrhoids (Alternative Therapy) Additional Instructions: take miralax as prescribed. take colace as prescribed use anusol as prescribed, follow up with a rectal/ Gi doctor as soon as possible. return to the ER for any worsening symptoms - Post Discharge Activity Work/Back to School Note: Back to Work
[2018-12-30] MEDS ORDERED: HYDROCORTISONE ACETATE 25 MG/SUPP.RECT PR ONE (04:52)
[2018-12-30] MEDS ORDERED: ACETAMINOPHEN 325 MG TABLET (FP) PO ONE (04:52)
[2018-12-30] MEDS ORDERED: ACETAMINOPHEN 325 MG TABLET (FP) ONE (04:55)
== END 2018-12-30 06:03 | disposition home or self-care (01) ==
LOC: JER 01:46
DX: K64.8 Other hemorrhoids (principal); K21.9 Gastro-esophageal reflux disease without esophagitis; F41.9 Anxiety disorder, unspecified
CPT/HCPCS: 36415; 82272; 99282-25

== ENCOUNTER 2022-04-10 17:31 | Emergency (ER) | payer SELFPAY ==
[2022-04-10 17:48] VITALS: BP 161/87; PULSE 85; RESP 18; TEMP 98.9; BMI 42.0
[2022-04-10] MEDS ORDERED: ALBUTEROL SO4 2.5/IPRATROPIUM 0.5 INH SOL 3 ML VIAL.NEB. NEB ONE (18:37)
== END 2022-04-10 20:04 | disposition home or self-care (01) ==
LOC: JER 17:31
PROC: 3E0F7GC Introduction of Other Therapeutic Substance into Respiratory Tract, Via Natural or Artificial Opening (ICD-10-PCS; principal; 2022-04-10)
DX: R05.1 Acute cough (principal); J06.9 Acute upper respiratory infection, unspecified
CPT/HCPCS: 0241U-QW; 71046-TC-FY; 99284-25